=== PATIENT | male | born 1985 | race Two or more races ===

== ENCOUNTER 2018-11-06 11:53 | Emergency (ER) | payer OTHER ==
[~2018-11-06] VITALS: Ht 180.3 cm; Wt 80.3 kg
== END 2018-11-06 16:06 | disposition home or self-care (01) ==
LOC: ER 11:53
DX: K52.9 Noninfective gastroenteritis and colitis, unspecified (principal)

== ENCOUNTER 2019-10-01 14:36 | Emergency (ER) | payer OTHER ==
[~2019-10-01] VITALS: Ht 180.3 cm; Wt 81.6 kg
== END 2019-10-01 16:15 | disposition home or self-care (01) ==
LOC: ER 14:36
DX: B34.9 Viral infection, unspecified (principal)